=== PATIENT | female | born 1975 | race Two or more races ===

== ENCOUNTER 2023-12-20 16:43 | Outpatient (CLI) | payer MEDICAID, SELFPAY | END 2023-12-20 16:44 | disposition home or self-care (01) | PROVIDERS: Visit Provider Nurse Practitioner Family | DX: Z00.00 Encounter for general adult medical examination without abnormal findings (principal); E78.5 Hyperlipidemia, unspecified; E66.9 Obesity, unspecified; R73.03 Prediabetes | CPT/HCPCS: 80053; 80061 ==